=== PATIENT | female | born 1960 | race Caucasian/White ===

== ENCOUNTER 2023-02-20 09:11 | Outpatient (CLI) | payer OTHER, SELFPAY ==
[2023-02-20 13:46] LABS: Cholesterol* 237 mg/dL (90-199); HDL Cholesterol* 64 mg/dL (>=50); LDL Cholesterol Calculated 157 mg/dL (<100); Triglycerides* 79 mg/dL (40-149)
== END 2023-02-20 09:12 | disposition home or self-care (01) ==
LOC: KYNREF 09:11
PROVIDERS: PCP Nurse Practitioner Family; Visit Provider Nurse Practitioner Family
DX: E78.5 Hyperlipidemia, unspecified (principal)
CPT/HCPCS: 80061

== ENCOUNTER 2023-06-12 08:01 | Outpatient (CLI) | payer OTHER, SELFPAY ==
--- NOTE | 2023-06-12 08:15 | CRLHL7_ITS ---
For Patients: As a result of the Century Cures Act, medical imaging exams and procedure reports are released immediately into your electronic medical record. You may view this report before your referring provider. If you have questions, please contact your health care provider. BILATERAL SCREENING MAMMOGRAM WITH COMPUTER-AIDED DETECTION TECHNIQUE: CC and MLO views were obtained. These mammographic images have been obtained using full-field digital technique. These mammographic images were interpreted with the benefit of computer-aided detection. COMPARISON FILM: 05/26/13, 05/31/12, 06/20/11. FINDINGS: The breasts are heterogeneously dense, which may obscure small masses IMPRESSION: There is no radiographic evidence for malignancy. ASSESSMENT: BI-RADS Category 1: Negative RECOMMENDATION: Routine screening mammogram in 1 year. A lay language report of this examination will be provided to the patient. Ortega Hinson M.D. Diagnostic Radiologist [email or web address] / be/Dictated by: Ortega Hinson MD @ 06/18/2023 10:03:00 AM (Electronically Signed)
== END 2023-06-12 08:02 | disposition home or self-care (01) ==
LOC: MAMMO 08:03
PROVIDERS: PCP Nurse Practitioner Family; Visit Provider Nurse Practitioner Family
DX: Z12.31 Encounter for screening mammogram for malignant neoplasm of breast (principal); R92.2 Inconclusive mammogram
CPT/HCPCS: 77067

== ENCOUNTER 2023-08-16 08:23 | Outpatient (CLI) | payer OTHER, SELFPAY | END 2023-08-16 08:24 | disposition home or self-care (01) | PROVIDERS: PCP Nurse Practitioner Family; Visit Provider Nurse Practitioner Family | DX: E78.5 Hyperlipidemia, unspecified (principal); Z79.899 Other long term (current) drug therapy | CPT/HCPCS: 80061; 80076 ==

== ENCOUNTER 2024-02-05 09:25 | Outpatient (CLI) | payer BC, SELFPAY | END 2024-02-05 09:26 | disposition home or self-care (01) | PROVIDERS: PCP Nurse Practitioner Family; Visit Provider Nurse Practitioner Family | DX: Z00.00 Encounter for general adult medical examination without abnormal findings (principal); E78.5 Hyperlipidemia, unspecified; Z13.0 Encounter for screening for diseases of the blood and blood-forming organs and certain disorders involving the immune mechanism | CPT/HCPCS: 80053; 80061; 85025 ==

== ENCOUNTER 2025-06-08 09:39 | Outpatient (CLI) | payer MEDICARE, SELFPAY | END 2025-06-08 09:40 | disposition home or self-care (01) | PROVIDERS: PCP Nurse Practitioner Family; Visit Provider Nurse Practitioner Family | DX: E78.5 Hyperlipidemia, unspecified (principal); R05.3 Chronic cough | CPT/HCPCS: 80053; 80061; 85025 ==